=== PATIENT | male | born 1955 | race Caucasian/White ===

== ENCOUNTER 2019-10-13 15:45 | Emergency (ER) | payer MEDICARE, BC ==
[2019-10-13] MEDS ORDERED: Bacitracin/Neomycin/Polymyxin B Oint 0.9 GM U/D Packet TOP ONE (17:22)
--- NOTE | 2019-10-13 17:25 | EDM.PDOC ---
ED HPI GENERAL MEDICAL PROBLEM - General Chief Complaint: Laceration Stated Complaint: Head Laceration Time Seen by Provider: 10/13/19 15:57 Source of Information: Reports: Patient History Limitations: Reports: No Limitations - History of Present Illness INITIAL COMMENTS - FREE TEXT/NARRATIVE: Patient comes to ER with scalp laceration. Was attempting to clean mud of combine when he stood up and his head made contact with tubular piece of metal. No LOC. No visual changes/neuro changes. Denies other injuries. Has blood on shirt and pants but currently wound is not actively bleeding. Tetanus is up to date. No neck pain/other acute pain complaints other than discomfort associated with laceration. - Related Data Allergies Allergy/AdvReac Type Severity Reaction Status Date / Time gluten Allergy Rash Verified 10/13/19 15:49 Sulfa (Sulfonamide Allergy Cannot Verified 10/13/19 15:49 Antibiotics) Remember Home Meds: Home Meds . [Unable to Verify Home Med List] 10/13/19 [History] Past Medical History HEENT History: Reports: Hard of Hearing, Otitis Media Cardiovascular History: Reports: Arrhythmia, High Cholesterol, Hypertension Respiratory History: Reports: COPD, Sleep Apnea Gastrointestinal History: Reports: Chronic Constipation Genitourinary History: Reports: Pyelonephritis, Renal Calculus Musculoskeletal History: Reports: Arthritis Neurological History: Reports: Parkinson's - Past Surgical History Other HEENT Surgeries/Procedures: 08/2019: Left ear cartilage infection secondary to inner ear infection Male Surgical History: Reports: Renal Calculus Social & Family History - Tobacco Use Smoking Status *Q: Never Smoker Second Hand Smoke Exposure: No - Caffeine Use Caffeine Use: Reports: Coffee - Recreational Drug Use Recreational Drug Use: No ED ROS GENERAL - Review of Systems Review Of Systems: Comprehensive ROS is negative, except as noted in HPI. ED EXAM, SKIN/RASH Exam: See Below Exam Limited By: No Limitations General Appearance: Alert, WD/WN, No Apparent Distress Eye Exam: Bilateral Eye: EOMI, PERRL Ears: Normal External Exam Nose: No: Nasal Deformity, Nasal Swelling, Nasal Drainage Throat/Mouth: Normal Lips, Normal Voice, No Airway Compromise Head: Other (laceration crown of head). No: Facial Swelling, Facial Tenderness Neck: Supple, Non-Tender, Full Range of Motion Respiratory/Chest: No Respiratory Distress Neurological: Alert, Oriented, CN II-XII Intact, Normal Cognition, Normal Gait, No Motor/Sensory Deficits Psychiatric: Normal Affect, Normal Mood Skin: Warm, Dry, Other (laceration crown of head) ED SKIN PROCEDURES - Laceration/Wound Repair [place] Head Appearance: Subcutaneous, Linear, Clean Skin Prep: Providone-Iodine (Betadine) Exploration/Debridement/Repair: Wound Explored, In a Bloodless Field, Explored to Base, No Foreign Material Found Closed with: [place] Lac/Wound length In cm: 4 # of Sutures: 5 Sterile Dressing Applied: None Tetanus Status Addressed: Yes Complications: No Course - Vital Signs Last Recorded V/S: Last Vital Signs Temp 36.0 C 10/13/19 16:17 Pulse 56 L 10/13/19 16:17 Resp 18 10/13/19 16:17 BP 147/94 H 10/13/19 16:17 Pulse Ox 96 10/13/19 16:17 - Orders/Labs/Meds Meds: Medications Discontinued Medications Generic Name Dose Route Start Last Admin Trade Name Freq PRN Reason Stop Dose Admin Neomycin/Polymyxin/Bacitracin 1 each 10/13/19 17:22 Triple Antibiotic Oint TOP 10/13/19 17:23 ONETIME ONE - Re-Assessments/Exams Free Text/Narrative Re-Assessment/Exam: 10/13/19 17:54 Laceration repaired. Wound care reviewed. To follow up for staple removal either Wednesday (if wound healing well) or Wednesday at clinic. Follow up as needed otherwise PRN problems. Departure - Departure Time of Disposition: 17:23 Disposition: Home, Self-Care 01 Condition: Good Clinical Impression: Laceration of scalp Qualifiers: Encounter type: initial encounter Qualified Code(s): S01.01XA - Laceration without foreign body of scalp, initial encounter - Discharge Information *PRESCRIPTION DRUG MONITORING PROGRAM REVIEWED*: Not Applicable *COPY OF PRESCRIPTION DRUG MONITORING REPORT IN PATIENT ELISE: Not Applicable Instructions: Stitches, Rach, or Adhesive Wound Closure, [id number] Referrals: PCP,Not In Area [Primary Care Provider] - Forms: ED Department Discharge Additional Instructions: Get BP rechecked next week. It was a little high today. Wound care as discussed. Follow up as needed if you have any problems/signs of infection. If the would appears to be healing well, ok to consider getting rach removed next Wednesday as discussed. Otherwise OK to have them out of Wednesday after the holiday.
== END 2019-10-13 17:39 | disposition home or self-care (01) ==
LOC: LL.ED 15:45
DX: S01.01XA Laceration without foreign body of scalp, initial encounter (principal); I10 Essential (primary) hypertension; Z91.018 Allergy to other foods; Z88.2 Allergy status to sulfonamides; W26.8XXA Contact with other sharp object(s), not elsewhere classified, initial encounter
CPT/HCPCS: 12002; 99282